=== PATIENT | female | born 1935 | race Caucasian/White ===

== ENCOUNTER → 2017-05-18 | Outpatient (CLI) | payer OTHER | LOC: FIMAGING 08:25 | PROVIDERS: ATTEND Internal Medicine | DX: R91.8 Other nonspecific abnormal finding of lung field (principal); Z87.891 Personal history of nicotine dependence; Z12.2 Encounter for screening for malignant neoplasm of respiratory organs ==

== ENCOUNTER 2017-08-05 06:52 | Day surgery (SDC) | payer OTHER ==
[2017-08-05] MEDS ORDERED: NS 1,000 ML IV SCH (07:30)
[2017-08-05 08:04] LABS: HEMATOCRIT 42.7 % (38.0-47.0)
[2017-08-05 08:21] LABS: APTT 33.8 SEC (23.0-38.0); INR 0.94 (0.83-1.16); PROTIME(PATIENT) 12.5 SEC (12.0-15.0)
[2017-08-05] MEDS ORDERED: FLUMAZENIL 0.5 MG/5 ML MDV IVP ONE (08:24)
[2017-08-05] MEDS ORDERED: NALOXONE HCL 0.4 MG/ML INJ ONE (08:25)
[2017-08-05] MEDS ORDERED: fentaNYL 100 MCG/2 ML INJ ONE ×2 (08:25→08:26)
[2017-08-05] MEDS ORDERED: MIDAZOLAM 2 MG/2 ML VIAL ONE (08:25)
[2017-08-05] MEDS ORDERED: ONDANSETRON 4 MG/2 ML VIAL ONE (08:26)
[2017-08-05] MEDS ORDERED: ONDANSETRON 4 MG/2 ML VIAL IVP PRN (10:59)
== END 2017-08-05 14:09 | disposition home or self-care (01) ==
LOC: FIMAGING 06:52
PROVIDERS: ATTEND Radiology Diagnostic Radiology
PROC: BB271ZZ Computerized Tomography (CT Scan) of Right Tracheobronchial Tree using Low Osmolar Contrast (ICD-10-PCS; principal; 2017-08-05 10:15)
PROC: 0BBC3ZX Excision of Right Upper Lung Lobe, Percutaneous Approach, Diagnostic (ICD-10-PCS; principal; 2017-08-05 10:15)
DX: R91.1 Solitary pulmonary nodule (principal); R04.2 Hemoptysis; Z96.653 Presence of artificial knee joint, bilateral
CPT/HCPCS: J2250; J2310; J2405; J3010

== ENCOUNTER 2018-11-25 18:25 | Emergency (ER) | payer OTHER ==
--- NOTE | 2018-11-25 18:31 | EDPHY ---
H & P Stated Complaint: Hypoglycemia Time Seen by Provider: 11/25/18 18:30 HPI/ROS: CHIEF COMPLAINT: Hypoglycemia HISTORY OF PRESENT ILLNESS: The patient is brought in by paramedics after a recall for altered mental status. The patient was found to have a blood sugar of 20 by the pre-hospital team. She received IV glucose in the field. Patient reports that she has been struggling with a mild upper respiratory infection this week. She does use insulin for management of her diabetes. She took insulin prior to going to dinner this evening however was unable to make it to the cafeteria secondary to her acute hypoglycemia. The patient does report that she is on 2 medications for control of her diabetes. She is uncertain which medications she takes. The patient denies any history of fall or trauma. She has no complaints of abdominal pain, vomiting, diarrhea or significant dyspnea. REVIEW OF SYSTEMS: A comprehensive 10 point review of systems is otherwise negative aside from elements mentioned in the history of present illness. Source: Patient, EMS - Personal History Current Tetanus Diphtheria and Acellular Pertussis (TDAP): No Tetanus Vaccine Date: 2003 - Medical/Surgical History Hx Asthma: No Hx Chronic Respiratory Disease: No Hx Diabetes: Yes Hx Cardiac Disease: No Hx Renal Disease: No Hx Cirrhosis: No Hx Alcoholism: No Hx HIV/AIDS: No Hx Splenectomy or Spleen Trauma: No Other PMH: diabetes, HTN - Social History Smoking Status: Former smoker - Physical Exam Exam: General Appearance: Alert, no distress Eyes: Pupils equal and round no pallor or injection ENT, Mouth: Mucous membranes moist Respiratory: There are no retractions, lungs are clear to auscultation Cardiovascular: Regular rate and rhythm Gastrointestinal: Abdomen is soft and nontender, no masses, bowel sounds normal Neurological: A&O, normal motor function, normal sensory exam, normal cranial nerves Skin: Warm and dry, no rashes Musculoskeletal: Neck is supple nontender Extremities: symmetrical, full range of motion Constitutional: Initial Vital Signs Temperature (C) 36.6 C 11/25/18 18:28 Heart Rate 72 11/25/18 18:28 Respiratory Rate 18 11/25/18 18:28 Blood Pressure 100/58 L 11/25/18 18:28 O2 Sat (%) 97 11/25/18 18:28 O2 Delivery Mode Room Air Allergies/Adverse Reactions: alcohol [Alcohol] Allergy (Severe, Verified 11/13/10 17:15) HYPERTHERMIA MYCINS Allergy (Severe, Uncoded 11/13/10 17:15) BLISTERS IN MOUTH Home Medications: Medication Instructions Recorded DIOVAN 320 mg PO DAILY 11/13/10 LASIX 20 mg PO DAILY 11/13/10 Acetaminophen [Tylenol ES 500 mg PRN PRN 08/04/17 (*)] Atorvastatin Calcium [Lipitor 10 10 mg PO DAILY 08/04/17 mg (*)] Insulin Detemir [Levemir] 15 units SC BID 08/04/17 Metoprolol Tartrate 100 mg PO DAILY 08/04/17 glipiZIDE [Glipizide] 10 mg PO BID 08/04/17 Medical Decision Making ED Course/Re-evaluation: The patient presents to the ED after an episode of hypoglycemia secondary to insulin reaction. The patient did receive D50 prior to arrival. She arrived with a normal blood sugar. Blood sugar was recheck to half an hour after arrival in found to be normal. Blood glucose at 8:10 p.m. is 80. I re-evaluated the patient. She is now complaining of a headache and does note a small hematoma to the left side of her occiput. Given her age and complaints a CT scan of the brain has been ordered. CT scan of the brain is pending at 9:00 p.m.. Family has arrived. They would like to take the patient home. They are in a position to check her blood sugar 2 hr this evening. Care will be transferred to Dr. Pinon pending the results of her CT scan. Differential Diagnosis: Differential diagnosis considered includes insulin reaction, dehydration, metabolic abnormality, oral hypoglycemic side effect - Data Points Laboratory Results: Laboratory Results 11/25/18 18:47 11/25/18 18:47 11/25/18 11/25/18 11/25/18 20:05 18:53 18:47 WBC RBC Hgb POC Hgb 13.6 gm/dL gm/dL (12.6-16.3) Hct POC Hct 40 % % (38-47) MCV MCH MCHC RDW Plt Count MPV Neut % (Auto) Lymph % (Auto) [place] % (Auto) Eos % (Auto) Baso % (Auto) Nucleat RBC Rel Count Absolute Neuts (auto) Absolute Lymphs (auto) Absolute Monos (auto) Absolute Eos (auto) Absolute Basos (auto) Absolute Nucleated RBC Immature Gran % Immature Gran # RBC/WBC/PLT Morphology Platelet Estimate POC Sodium 143 mEq/L mEq/L (135-145) Sodium 138 mEq/L mEq/L (135-145) POC Potassium 4.2 mEq/L mEq/L (3.3-5.0) Potassium 4.2 mEq/L mEq/L (3.5-5.2) POC Chloride 108 mEq/L mEq/L (97-110) Chloride 109 mEq/L mEq/L (97-110) Carbon Dioxide 19 mEq/l L mEq/l (22-31) Anion Gap 10 mEq/L mEq/L (6-14) POC BUN 30 mg/dL H mg/dL (7-23) BUN 30 mg/dL H mg/dL (7-23) Creatinine 1.6 mg/dL H mg/dL (0.6-1.0) POC Creatinine 1.6 mg/dL H mg/dL (0.6-1.0) Estimated GFR 31 Glucose 67 mg/dL L mg/dL (70-100) POC Glucose 80 mg/dL mg/dL 70 mg/dL mg/dL (70-100) (70-100) Calcium 9.2 mg/dL mg/dL (8.5-10.4) 11/25/18 18:47 WBC 10.94 10^3/uL H 10^3/uL (3.80-9.50) RBC 4.00 10^6/uL L 10^6/uL (4.18-5.33) Hgb 12.4 g/dL L g/dL (12.6-16.3) POC Hgb Hct 36.7 % L % (38.0-47.0) POC Hct MCV 91.8 fL fL (81.5-99.8) MCH 31.0 pg pg (27.9-34.1) MCHC 33.8 g/dL g/dL (32.4-36.7) RDW 14.4 % % (11.5-15.2) Plt Count 233 10^3/uL 10^3/uL (150-400) MPV 10.7 fL fL (8.7-11.7) Neut % (Auto) 76.4 % H % (39.3-74.2) Lymph % (Auto) 13.5 % L % (15.0-45.0) [place] % (Auto) 7.5 % % (4.5-13.0) Eos % (Auto) 1.6 % % (0.6-7.6) Baso % (Auto) 0.5 % % (0.3-1.7) Nucleat RBC Rel Count 0.0 % % (0.0-0.2) Absolute Neuts (auto) 8.43 10^3/uL H 10^3/uL (1.70-6.50) Absolute Lymphs (auto) 1.49 10^3/uL 10^3/uL (1.00-3.00) Absolute Monos (auto) 0.83 10^3/uL H 10^3/uL (0.30-0.80) Absolute Eos (auto) 0.18 10^3/uL 10^3/uL (0.03-0.40) Absolute Basos (auto) 0.06 10^3/uL 10^3/uL (0.02-0.10) Absolute Nucleated RBC 0.00 10^3/uL 10^3/uL (0-0.01) Immature Gran % 0.5 % % (0.0-1.1) Immature Gran # 0.06 10^3/uL 10^3/uL (0.00-0.10) RBC/WBC/PLT Morphology TNP Platelet Estimate TNP POC Sodium Sodium POC Potassium Potassium POC Chloride Chloride Carbon Dioxide Anion Gap POC BUN BUN Creatinine POC Creatinine Estimated GFR Glucose POC Glucose Calcium Medications Given: Discontinued Medications Sodium Chloride (Ns) 1,000 mls @ 0 mls/hr IV EDNOW ONE; Wide Open PRN Reason: Protocol Stop: 11/25/18 18:37 Last Admin: 11/25/18 19:11 Dose: 1,000 mls Point of Care Test Results: Chemistry 11/25/18 11/25/18 20:05 18:53 POC Sodium 143 mEq/L mEq/L (135-145) POC Potassium 4.2 mEq/L mEq/L (3.3-5.0) POC Chloride 108 mEq/L mEq/L (97-110) POC BUN 30 mg/dL H mg/dL (7-23) POC Creatinine 1.6 mg/dL H mg/dL (0.6-1.0) POC Glucose 80 mg/dL mg/dL 70 mg/dL mg/dL (70-100) (70-100) ISTAT H&H 11/25/18 18:53 POC Hgb 13.6 gm/dL gm/dL (12.6-16.3) POC Hct 40 % % (38-47) Departure - Departure Disposition: Home, Routine, Self-Care Clinical Impression: Hypoglycemia Condition: Good Instructions: Hypoglycemia in a Person with Diabetes (ED) Additional Instructions: 1. It is imperative that family members check blood sugar every 2 hr this evening to ensure that critically low blood sugar is not develop. 2. Return to the emergency department for any altered mental status, low blood sugar or other concerns.
[2018-11-25] MEDS ORDERED: NS 1,000 ML IV ONE (18:36)
[2018-11-25 19:20] LABS: PLATELET COUNT 233 10^3/uL (150-400)
[2018-11-25 21:38] VITALS: BP 167/81
== END 2018-11-25 21:38 | disposition home or self-care (01) ==
LOC: EDUNIT#
DX: E11.649 Type 2 diabetes mellitus with hypoglycemia without coma (principal); E86.9 Volume depletion, unspecified; I10 Essential (primary) hypertension
CPT/HCPCS: 82435-PO; 82565-PO; 82947-PO; 84132-PO; 84295-PO; 84520-PO; 85014-PO

== ENCOUNTER → 2019-01-20 | Outpatient (CLI) | payer OTHER | LOC: BMCIMAGING 09:16 | PROVIDERS: ATTEND Internal Medicine | DX: R05 Cough (principal); Z98.890 Other specified postprocedural states ==

== ENCOUNTER → 2019-02-11 | Outpatient (CLI) | payer OTHER | LOC: FIMAGING 08:48 | PROVIDERS: ATTEND Internal Medicine | DX: R91.1 Solitary pulmonary nodule (principal) ==